=== PATIENT | male | born 1995 | race African-American/Black ===

== ENCOUNTER 2019-10-07 20:22 | Emergency (ER) | payer OTHER ==
[~2019-10-07] VITALS: Ht 175.3 cm; Wt 99.8 kg
[2019-10-07 20:28] VITALS: BP 124/76
--- NOTE | 2019-10-07 20:28 | NUR ---
PT [facility] BLS TO ER BED 09
[2019-10-07 20:40] VITALS: BP 124/76
--- NOTE | 2019-10-07 20:40 | NUR ---
24 Y/O M, BIBA, WITH COMPLAINTS OF SORE THROAT STARTING TODAY WHEN HE WOKE UP. PATIENT REPORTS BEING UNABLE TO EAT AND SWALLOW. PATIENT HAS RASPY VOICE AND THROAT IS TENDER TO TOUCH. FAMILY AT BEDSIDE, BEDRAILS X1 UP. WILL CONTINUE TO MONITOR.
--- NOTE | 2019-10-07 20:45 | NUR ---
STREP SWAB COLLECTED AND GIVEN TO LAB
--- NOTE | 2019-10-07 20:54 | NUR ---
PT TO XRAY BY WHEEL CHAIR
--- NOTE | 2019-10-07 20:54 | NUR ---
PATIENT TAKEN TO RADIOLOGY VIA WHEELCHAIR
--- NOTE | 2019-10-07 22:15 | NUR ---
PT SEATED UPRIGHT. O2 SATURATION AT 100% ON RA. RESPIRATIONS EVEN AND UNLABORED. WILL CONTINUE TO MONITOR.
[2019-10-07] MEDS: IBUPROFEN 800 MG TAB PO ONE (22:59)
--- NOTE | 2019-10-07 23:28 | NUR ---
Patient discharged with v/s stable. Written and verbal after care instructions given and explained. Patient alert, oriented and verbalized understanding of instructions. Ambulatory with steady gait. All questions addressed prior to discharge. ID band removed. Patient advised to follow up with PMD. Rx of motrin and promethezine given. Patient educated on indication of medication including possible reaction and side effects. Opportunity to ask questions provided and answered.
== END 2019-10-07 23:28 | disposition home or self-care (01) ==
LOC: MED 20:22
DX: R05 Cough (principal); R06.00 Dyspnea, unspecified; J45.909 Unspecified asthma, uncomplicated
CPT/HCPCS: 70360; 70490; 87081; 99284